=== PATIENT | male | born 1995 | race Caucasian/White ===

== ENCOUNTER 2022-03-03 18:25 | Emergency (ER) | payer SELFPAY ==
[~2022-03-03] VITALS: Ht 172.7 cm; Wt 59.0 kg
[2022-03-03] MEDS ORDERED: USTE90DI SUBCUT (18:39)
[2022-03-03] MEDS ORDERED: HYDROMORPHONE 1 MG/1 ML DISP.SYRIN IV ONE ×2 (19:00→21:00)
[2022-03-03] MEDS ORDERED: ONDANSETRON 4 MG/2 ML VIAL IV ONE ×2 (19:00→21:00)
[2022-03-03] MEDS ORDERED: IV NORMAL SALINE 1000 ML BAG IV ONE (19:00)
[2022-03-03] MEDS ORDERED: IOHEXOL 300MG/ML 50 ML VIAL ONE (19:04)
[2022-03-03] MEDS ORDERED: IV NORMAL SALINE 250 ML IV ONE (19:04)
[2022-03-03] MEDS ORDERED: SWABABLE VALVE TRANSFER SET EA MC ONE (19:04)
[2022-03-03] MEDS ORDERED: HYDROMORPHONE 2 MG/1 ML DISP.SYRIN ONE ×2 (19:12→20:53)
[2022-03-03] MEDS ORDERED: ONDANSETRON 4 MG/2 ML VIAL ONE ×2 (19:12→20:53)
--- NOTE | 2022-03-03 19:26 | NUR ---
pt awake alert, iv was started by dayshift RN. Meds were given.
[2022-03-03 19:55] LABS: HEMATOCRIT 51.6 % (36.7-47.1); MEAN CORPUSCULAR HEMOGLOBIN 28.1 uug (23.8-33.4); MEAN CORPUSCULAR VOLUME 83.9 fL (73.0-96.2); PLATELET COUNT (AUTO) 397 K/uL (152-348)
[2022-03-03 20:09] LABS: BILIRUBIN,DIRECT 0.2 mg/dL (0.0-0.2); BILIRUBIN,TOTAL 0.4 mg/dL (0.2-1.0); CREATININE 1.2 mg/dL (0.6-1.3); POTASSIUM 4.7 mmol/L (3.5-5.1); TOTAL PROTEIN, SERUM 8.9 g/dL (6.4-8.2)
--- NOTE | 2022-03-03 20:29 | NUR ---
Called [facility] ambulance for transport to [facility] CT scan ETA is 2hrs.
--- NOTE | 2022-03-03 21:24 | NUR ---
pt requesting po intake, verified with Dr. Calderon pt is npo. informed pt
[2022-03-03] MEDS ORDERED: IV NS 1000 ML 1,000 ML IV ONE (21:45)
--- NOTE | 2022-03-03 22:07 | NUR ---
cat scan is not working at this hospital. pt was informed there earlier. [id number] is here [place] EMT. pt will be transported to [facility] for cat scan that is ordered. order, consent and required supplies sent with the pt, pt aware he will return back to this er after the cat scan.
--- NOTE | 2022-03-03 23:04 | NUR ---
pt returned via [facility] he was at [facility] for cat scan.
--- NOTE | 2022-03-04 | NUR ---
pt had his mother bring him food. food was set off to the side. pt is aware he is npo at this time until we have results of his cat scan.
[2022-03-04] MEDS ORDERED: HYDROMORPHONE 2 MG/1 ML DISP.SYRIN ONE (00:57)
[2022-03-04] MEDS ORDERED: HYDROMORPHONE 1 MG/1 ML DISP.SYRIN IV ONE (01:00)
--- NOTE | 2022-03-04 01:04 | NUR ---
cat scan results are available was provided a paper copy by information technology instructor I provided this to Dr. Calderon.
[2022-03-04] MEDS ORDERED: HYDR4TAB4 PO (01:14)
[2022-03-04] MEDS ORDERED: ONDA4TAB5 PO (01:14)
[2022-03-04] MEDS ORDERED: OXYCODONE PO (01:33)
--- NOTE | 2022-03-04 02:00 | NUR ---
Patient discharged to home in stable condition. Written and verbal after care instructions given. Patient verbalizes understanding of instructions. Stressed follow up or return to ER for worsening s/s.
[2022-03-04 02:05] VITALS: BP 115/60
== END 2022-03-04 02:06 | disposition home or self-care (01) ==
LOC: ER 18:25
DX: K50.90 Crohn's disease, unspecified, without complications (principal); Z93.2 Ileostomy status; Z90.49 Acquired absence of other specified parts of digestive tract
CPT/HCPCS: 99285; 74177; 96374; 96361; 96375; 80076; 80048; 83690; 83735; 85025; 36415; 96376 ×2; 83605; Q9967; J2405 ×2; J1170 ×3; J7040 ×2; A4663

== ENCOUNTER 2022-03-10 16:35 | Emergency (ER) | payer SELFPAY ==
[~2022-03-10] VITALS: Ht 165.1 cm; Wt 63.5 kg
[~2022-03-10 16:35] MED LIST: ONDA4TAB5 PO; OXYCODONE PO; USTE90DI SUBCUT
[2022-03-10] MEDS ORDERED: ONDANSETRON 4 MG/2 ML VIAL IV ONE (17:00)
[2022-03-10] MEDS ORDERED: MORPHINE SULFATE 2 MG/1 ML DISP.SYRIN IV ONE (17:00)
[2022-03-10] MEDS ORDERED: IV NORMAL SALINE 1000 ML BAG IV ONE ×2 (17:00→18:45)
[2022-03-10] MEDS ORDERED: MORPHINE SULFATE 4 MG/1 ML DISP.SYRIN ONE (17:23)
[2022-03-10] MEDS ORDERED: ONDANSETRON 4 MG/2 ML VIAL ONE (17:23)
[2022-03-10 17:29] LABS: HEMATOCRIT 45.8 % (36.7-47.1); MEAN CORPUSCULAR HEMOGLOBIN 27.9 uug (23.8-33.4); MEAN CORPUSCULAR VOLUME 84.7 fL (73.0-96.2); PLATELET COUNT (AUTO) 284 K/uL (152-348)
[2022-03-10 17:35] LABS: CREATININE 0.9 mg/dL (0.6-1.3); POTASSIUM 3.6 mmol/L (3.5-5.1)
[2022-03-10 17:41] LABS: BILIRUBIN,DIRECT 0.1 mg/dL (0.0-0.2); BILIRUBIN,TOTAL 0.4 mg/dL (0.2-1.0); TOTAL PROTEIN, SERUM 7.3 g/dL (6.4-8.2)
[2022-03-10] MEDS ORDERED: IOHEXOL 350 100 ML INFUS..BTL ONE (18:11)
[2022-03-10] MEDS ORDERED: SWABABLE VALVE TRANSFER SET EA MC ONE (18:11)
[2022-03-10] MEDS ORDERED: HYDROMORPHONE 1 MG/1 ML DISP.SYRIN IV ONE (18:45)
[2022-03-10] MEDS ORDERED: HYDROMORPHONE 1 MG/1 ML DISP.SYRIN ONE (18:49)
[2022-03-10] MEDS ORDERED: PRED20TA PO (19:00)
--- NOTE | 2022-03-10 19:24 | NUR ---
handoff report given to Danielle JOSEPH. pt in stable condition.
--- NOTE | 2022-03-10 20:41 | NUR ---
DR: ALPESH AT B/S SPOKED WITH PATIENT WITH D/C ORDERS.
--- NOTE | 2022-03-10 20:49 | NUR ---
PATIENT REFUSED TO SIGNED D/C PAPERS HE WANTS PRESCRIPTION FOR [facility]CO .HE WAS HERE 03/04/2022 AND WAS DISCHARGE WITH [facility] NOW PER MD: ALPESH HE WANTS PRESCRIPTION FOR [facility] . DR: ALPESH WANTS HIM DISCHARGE .
--- NOTE | 2022-03-10 20:58 | NUR ---
Patient discharged to home in stable condition.DR:ALPESH SPOKED WITH PATIENT AT B/S . PATIENT IS REQUESTING NARCOTIC NOR[facility] PRESCRIPTION DR: ALPESH EXPLSINED TO PATIENT HE WAS JUST HERE 03/04/2022 AND WAS D/C WITH OXYCODONE 30 MG FOR 21 DAYS SUPPLY AND THAT WAS 5 DAYS AGO . Written and verbal after care instructions given. WENT HOME WITH ALL BELONGINGS .STEAY OF GAIT AND V/S WNL . Patient verbalizes understanding of instructions. Stressed follow up or return to ER for worsening s/s.
[2022-03-10 21:01] VITALS: BP 105/65
== END 2022-03-10 21:02 | disposition home or self-care (01) ==
LOC: ER 16:35
DX: K50.90 Crohn's disease, unspecified, without complications (principal); R10.9 Unspecified abdominal pain; Z93.2 Ileostomy status
CPT/HCPCS: 99285; 74177; 96374; 96361; 96375; 80076; 80048; 83690; 85025; 36415; J2405; Q9967; J1170; J2270; J7040 ×2; A4663